=== PATIENT | female | born 1995 | race Caucasian/White ===

== ENCOUNTER 2017-09-06 05:59 | Emergency (ER) | payer OTHER ==
[~2017-09-06] VITALS: Ht 162.6 cm; Wt 57.2 kg
[2017-09-06 06:07] VITALS: BP 116/71
--- NOTE | 2017-09-06 06:22 | ED DYSPNEA/ASTHMA COMPLAINT ---
History of Present Illness General Chief Complaint: Dyspnea (COPD, CHF, Other) Stated Complaint: "IM HAVING TROUBLE BREATHING" Source: patient Exam Limitations: no limitations Vital Signs & Intake/Output Vital Signs & Intake/Output Vital Signs Date Time Temp Pulse Resp B/P B/P Pulse O2 O2 Flow FiO2 Mean Ox Delivery Rate 09/06 0607 100.1 110 24 116/71 92 Room Air Triage Note: PT FROM HOME, STATES CP AND SOB STARTED BEFORE BED, TOOK PEPTO BISMOL WITH NO RELIEF. WOKE UP THIS AM AND IT WAS WORSE. DENIES ANY CARDIAC HX, DENIES ASTHMA HX. TEMP 100.1 IN TRIAGE, O2 SAT 92% ON RA Triage Nurses Notes Reviewed? yes : No Patient currently breastfeeds: No HPI: Patient presents for evaluation of difficulty breathing chest pain and the feeling like a cue ball it is traveling from her chest to her throat. Patient denies fever but has felt chills. She denies cough, rashes, vomiting, diarrhea, dysuria, no contacts or recent travel. She likewise denies swelling of the legs but states that her throat feels a bit swollen. She denies smoking, drug use or consistent alcohol use, drinking only occasionally. (Ella GUILLEN,Robin Khan) Allergies Coded Allergies: No Known Allergies (09/06/17) Reconcile Medications Sertraline HCl 100 MG TABLET 1 TAB PO DAILY MENTAL HEALTH (Reported) (Chelo GUILLEN,Jer Vargas) Past History Travel History Traveled to [place] past 21 day No Medical History Any Pertinent Medical History? see below for history Neurological: NONE EENT: NONE Cardiovascular: NONE Respiratory: NONE Gastrointestinal: NONE Hepatic: NONE Renal: NONE Musculoskeletal: NONE Psychiatric: anxiety, depression Endocrine: NONE Blood Disorders: NONE Cancer(s): NONE [employer] TUMBLING AND ROLLING/Reproductive: NONE Surgical History Surgical History: non-contributory Psychosocial History What is your primary language Faroese Tobacco Use: Never used ETOH Use: occasional use Illicit Drug Use: denies illicit drug use Family History Hx Contributory? No (Ella GUILLEN,Robin Khan) Review of Systems Review of Systems Constitutional: Reports: chills. EENTM: Reports: no symptoms. Respiratory: Reports: see HPI. Cardiovascular: Reports: see HPI. GI: Reports: no symptoms. Genitourinary: Reports: no symptoms. Musculoskeletal: Reports: no symptoms. Skin: Reports: no symptoms. Neurological/Psychological: Reports: no symptoms. Hematologic/Endocrine: Reports: no symptoms. Immunologic/Allergic: Reports: no symptoms. All Other Systems: Reviewed and Negative (Ella GUILLEN,Robin Khan) Physical Exam Physical Exam Respiratory: SEE BELOW Comments: Gen.: Well-nourished, well-developed, mild respiratory distress, Head: Normocephalic, atraumatic. Eyes: Normal inspection bilaterally Ears: Normal inspection bilaterally Nose: Normal inspection Throat/mouth : Moist mucosa Neck: Supple, full range of motion, no goiter Heart: Regular rate and rhythm, no murmurs rubs or gallops Lungs: Clear to auscultation bilaterally with normal air entry Chest: Nontender Back: Normal range of motion Abdomen: Soft, nontender, nondistended, normal bowel sounds Extremities: Normal range of motion grossly, equal radial pulses, no cyanosis clubbing or edema Neurologic: Cranial nerves grossly intact, speech is clear Skin: warm and dry Psychiatric: Calm, cooperative, no apparent delusions or hallucinations, appears somewhat anxious (Ella GUILLEN,Robin Khan) Core Measures ACS in differential dx? No CVA/TIA Diagnosis No Sepsis Present: No Sepsis Focused Exam Completed? No (Chelo GUILLEN,Jer Vargas) Progress Differential Diagnosis: bronchitis, pneumonia, pneumothorax, VIRAL SYNDROME Plan of Care: Orders Procedure Date/time Status RAPID VIRAL INFLUENZA A 09/06 624 Complete THROAT CULTURE W/QUICK STREP 09/06 624 Active URINALYSIS 09/06 624 Complete TROPONIN LEVEL 09/06 624 Complete MONOSPOT 09/06 624 Complete HUMAN BETA HCG SCREEN 09/06 624 Complete COMPREHENSIVE METABOLIC PANEL 09/06 624 Complete CBC WITHOUT DIFFERENTIAL 09/06 624 Complete EKG 09/06 624 Active Laboratory Tests 09/06/17 0654: Urine Color YEL, Urine Clarity HAZY H, Urine pH 6.0, Ur Specific [place] >= 1.030, Urine Protein TRACE H, Urine Ketones NEG, Urine Nitrite NEG, Urine Bilirubin NEG, Urine Urobilinogen 0.2, Ur Leukocyte Esterase TRACE H, Ur Microscopic SEDIMENT EXAMINED, Urine RBC 50-75 H, Urine WBC 5-10 H, Ur Epithelial Cells PACKD H, Urine Bacteria MANY H, Urine Mucus MOD H, Urine Hemoglobin MOD H, Urine Glucose NEG 09/06/17 0637: Anion Gap 17 H, Estimated GFR > 60, BUN/Creatinine Ratio 28.3 H, Glucose 101 H, Calcium 10.1, Total Bilirubin 0.7, AST 21, ALT 33, Alkaline Phosphatase 68, Troponin I < 0.01, Total Protein 8.3 H, Albumin 5.0, Globulin 3.3, Albumin/ Globulin Ratio 1.5, Total Beta HCG NEGATIVE, CBC w Diff MAN DIFF ORDERED, RBC 4.71, MCV 90.2, MCH 30.5, MCHC 33.8, RDW 13.0, MPV 7.3 L, Gran % 87.8 H, Lymphocytes % 8.0 L, Monocytes % 3.2, Eosinophils % 0.8, Basophils % 0.2, Absolute Granulocytes 15.4 H, Segmented Neutrophils 72, Band Neutrophils 1, Absolute Lymphocytes 1.4, Lymphocytes 19 L, Monocytes 6, Absolute Monocytes 0.6 , Eosinophils 2, Absolute Eosinophils 0.1, Absolute Basophils 0, Platelet Estimate ADEQUATE, Normocytic RBCs VERIFIED, Normochromic RBCs VERIFIED, Infectious [place] Titer NEGATIVE Microbiology 09/07 643 NASOPHARYN: Influenza Virus A & B Rapid Smear - COMP (Ella GUILLEN,Robin Khan) Diagnostic Imaging: Viewed by Me: Radiology Read. Discussed w/RAD: Radiology Read. CXR Impression: PATIENT: SHAYLA HARDING PRESENT AGE: 21 PATIENT ACCOUNT NO: [id number] : 93 LOCATION: [facility] ORDERING PHYSICIAN: Robin Jaramillo MD SERVICE DATE: 09/06/17 EXAM TYPE: RAD - XRY-CHEST XRAY, TWO VIEWS EXAMINATION: XR CHEST CLINICAL INFORMATION: Chest pain, fever and shortness of breath. COMPARISON: None TECHNIQUE: 2 views of the chest were obtained. FINDINGS: The lungs are well-inflated and clear. Trachea is midline in position. No evidence of interstitial disease, focal consolidation, mass, pneumothorax or pleural effusion. The cardiomediastinal silhouette and pulmonary kenn have normal size and contour. Mild dextrocurvature of the thoracic spine. The examined upper abdomen is unremarkable. IMPRESSION: No acute pulmonary disease. DICTATED BY: Angelo Kang MD DATE/TIME DICTATED:09/06/17801 CADDY PACKER:ALMITA DATE/TIME TRANSCRIBED:09/06/17801 CONFIDENTIAL, DO NOT COPY WITHOUT APPROPRIATE AUTHORIZATION. <Electronically signed in Other Vendor System> SIGNED BY: Angelo Kang MD 09/06/1707 Initial ED EKG: none (Chelo GUILLEN,Jer Vargas) Departure Departure Condition: Stable Referrals: Patient Has No Primary Care Dr (PCP/Family) Departure Forms: Customer Survey General Discharge Information (Ella GUILLEN,Robin Khan) Departure Disposition: HOME OR SELF CARE Clinical Impression Primary Impression: Viral syndrome Additional Instructions: DRINK PLENTY OF FLUIDS TAKE MOTRIN OR TYLENOL NEEDED FOR FEVERS RETURN IF SYMPTOMS WORSEN OR FOR ANY CONCERNS (Jer Whitney MD) Critical Care Note Critical Care Note Critical Care Time: non-applicable (Jer Whitney MD)
[2017-09-06 06:48] LABS: ABSOLUTE BASOPHIL COUNT 0 /CUMM (0.0-0.2); ABSOLUTE EOSINOPHIL COUNT 0.1 /CUMM (0.0-0.7); ABSOLUTE GRANULOCYTE CT 15.4 /CUMM (1.4-6.5); ABSOLUTE LYMPH COUNT 1.4 /CUMM (1.2-3.4); ABSOLUTE MONOCYTE COUNT 0.6 /CUMM (0.10-0.60); BASOPHIL % 0.2 % (0.0-2.0); EOSINOPHIL % 0.8 % (0-5); GRANULOCYTE % 87.8 % (42.2-75.2); HEMATOCRIT 42.5 % (37-47); MEAN CORPUSCULAR HGB 30.5 PG (27.0-31.0); MEAN CORPUSCULAR HGB CONC 33.8 G/DL (33.0-37.0); MEAN CORPUSCULAR VOLUME 90.2 FL (81.0-99.0); MEAN PLATELET VOLUME 7.3 FL (7.4-10.4); PLATELET COUNT 300 /CUMM (130-400); RED BLOOD CELL CT 4.71 /CUMM (4.20-5.40); WHITE BLOOD CELL COUNT 17.6 /CUMM (4.8-10.8)
[2017-09-06] MEDS ORDERED: SERTRALINE HCL100 MG PO (08:00)
--- NOTE | 2017-09-06 08:07 | RADIOLOGY REPORT ---
EXAMINATION: XR CHEST CLINICAL INFORMATION: Chest pain, fever and shortness of breath. COMPARISON: None TECHNIQUE: 2 views of the chest were obtained. FINDINGS: The lungs are well-inflated and clear. Trachea is midline in position. No evidence of interstitial disease, focal consolidation, mass, pneumothorax or pleural effusion. The cardiomediastinal silhouette and pulmonary kenn have normal size and contour. Mild dextrocurvature of the thoracic spine. The examined upper abdomen is unremarkable. IMPRESSION: No acute pulmonary disease.
== END 2017-09-06 08:29 ==
LOC: ERH 05:59
PROVIDERS: Emergency Medicine
DX: B34.9 Viral infection, unspecified (principal); R07.9 Chest pain, unspecified
CPT/HCPCS: 71046; 81001; 87804; 87804-59; 93005; 93010